=== PATIENT | female | born 1945 | race Caucasian/White ===

== ENCOUNTER 2016-12-16 10:41 | Inpatient (IN) | payer MEDICARE ==
[2016-12-16] MEDS ORDERED: SODIUM CHLORIDE 0.9% 3 ML FLUSH FLUSH PRN (10:56)
[2016-12-16] MEDS ORDERED: HYDROmorphone 1 MG INJECTION IV ONE (10:56)
[2016-12-16] MEDS ORDERED: NS 1,000 ML IV ONE ×2 (10:56)
--- NOTE | 2016-12-16 11:00 | EDPRACDOC ---
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 PT HAS BEEN ON IV ABX SHE UNDERWENT RT AKA 11/07/[address] ALEXIS AND HAD BEEN DOING WELL HAD HUNTER OUT WAS SENT TO [facility] AND AFTER THAT NOTED TO HAVE REDNESS AND SWELLING OF RIGHT AKA STUMP WAS STARTED ON IV VANCOMYCIN AND MEROPENEM. <Cristal Escobar - Last Filed: 12/16/16 13:10> - General Information Chief Complaint: Wound Stated Complaint: WOUND CHECK Time Seen by Provider: 12/16/16 10:41 Home Medications: Home Medications Metoprolol Tartrate 50 mg PO BID #60 tablet 04/03/16 Atorvastatin Calcium [Lipitor] 20 mg PO DAILY #30 tablet 11/10/16 Lisinopril [Prinivil] 2.5 mg PO DAILY #30 tablet 11/10/16 Hydromorphone HCl [Dilaudid] 1 mg PO Q6H PRN 12/16/16 Magnesium Oxide [Mag-Ox] 400 mg PO BID 12/16/16 Oxycodone (OxyCONTIN) Ext Rel [Oxycontin] 10 mg PO Q12H 12/16/16 Pantoprazole Sodium [Protonix] 40 mg PO BID 12/16/16 Potassium Chloride [Klor-Con M20] 40 meq PO BID 12/16/16 Sucralfate [Carafate] 1 gm PO TID 12/16/16 Allergies/Adverse Reactions: Allergies Allergy/AdvReac Type Severity Reaction Status Date / Time morphine AdvReac Nausea/Vomi Verified 12/16/16 10:47 ting ondansetron HCl AdvReac Dizziness Verified 12/16/16 10:47 [From Zofran (as hydrochloride)] - Treatment Prior to ED Arrival Reported Medications/Treatment 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 Denies: Substance Use Disorder Systemic History: Reports: Diabetes Surgical History: Reports: Tonsillectomy/Adnoidectomy, Other () - Family Medical History Reports: Hypertension (MOTHER). Denies: Diabetes, Cancer, Stroke, Cardiac Disorders, Respiratory Disorders, Renal Disease, Blood Disorders - Social Medical History Smoking Status: Former smoker Social History: Denies: Amphetamine Use, Barbiturate Use, Benzodiazipine Use, Cocaine Use, Heroin Use, Marijuana Use, Methadone Use, MDMA (Ecstasy) Use, Substance Use Disorder Lives With: Other Lives In: Longterm Facility <Cristal Escobar - Last Filed: 12/16/16 13:10> EDM Review of Systems - Review of Systems ROS Negative Except as Marked: Yes All systems reviewed and were negative except as marked Constitutional: No Symptoms Reported. negative: Fever, Chills, Weakness, Fatigue, Loss of Appetite Eyes: No Symptoms Reported. negative: Redness, Blurred Vision, Double Vision, Discharge, Pain, Light Sensitive, Photophobia Ears: No Symptoms Reported. negative: Pain, Hearing Loss, Drainage, Ear Pulling Throat: No Symptoms Reported. negative: Pain, Swelling Nose: No Symptoms Reported. negative: Congestion, Bleeding, Discharge, Injection, Swelling, Deformity, Ecchymosis, Tender, Abrasion, Laceration Mouth: No Symptoms Reported. negative: Pain, Drooling Respiratory: No Symptoms Reported. negative: Cough, Brassy Cough, Barky Cough, Shortness of Breath, Wheezing, Hemoptysis Cardiovascular: No Symptoms Reported. negative: Chest Pain, Palpitations, Syncope, Edema, Orthopnea, PND, Skin Mottling, Cyanosis Gastrointestinal: No Symptoms Reported. negative: Pain, Constipation, Nausea, Vomiting, Diarrhea, Melena, Formula Intolerance Genitourinary: No Symptoms Reported. negative: Dysuria, Hematuria, Frequency, Discharge, Bleeding, Testicular Pain, Neurological: No Symptoms Reported. negative: Headache, Dizziness, Seizure, Numbness, Weakness, Speech Difficulty, Gait Difficulty Musculoskeletal: No Symptoms Reported. negative: Neck, Chestwall, Ribs, Back, Shoulder, Arm, Elbow, Forearm, Wrist, Hand, Pelvis, Hip, Femur, Knee, Leg, Ankle , Foot Integumentary: Wound (RIGHT AKA STUMP INFECTION). negative: Bruising, Itching, Rash Allergic/Immunologic: No Symptoms Reported. negative: Hives, Itching Hematologic: No Symptoms Reported. negative: Lymphadenopathy, Easy Bruising, Easy Bleeding Endocrine: No Symptoms Reported. negative: Weight Gain, Weight Loss Psychiatric: No Symptoms Reported. negative: Anxiety, Depression, Hallucinations, Insomnia, Suicidal <Cristal Escobar - Last Filed: 12/16/16 13:10> - Physical Exam Last recorded Vital Signs: Last Vital Signs Temp 97.5 F 12/16/16 10:43 Pulse 78 12/16/16 11:27 Resp 20 12/16/16 11:27 BP 116/56 L 12/16/16 11:27 Pulse Ox 98 12/16/16 11:27 Oxygen Pulse Oxygen Saturation 98 O2 Device Room Air Oxygen Flow Rate Fraction of Inspired Oxygen ( FIO2) <Johnathon Ma - Last Filed: 12/16/16 12:43> - Physical Exam Constitutional: No apparent distress, Alert (Awake), Confused (MILD) Oriented to: Time, Person, Place Last recorded Vital Signs: Last Vital Signs Temp 97.5 F 12/16/16 10:43 Pulse 76 12/16/16 10:43 Resp 18 12/16/16 10:43 BP 118/56 L 12/16/16 10:43 Pulse Ox 99 12/16/16 10:43 Oxygen Pulse Oxygen Saturation 99 O2 Device Room Air Oxygen Flow Rate Fraction of Inspired Oxygen ( FIO2) - HEENT Head: Normal ( normocephalic) Eye Exam: Normal (PERRL, EOMI, Sclera white) Oropharynx: Normal (Pharynx:Moist without exudate,Gums-no swelling) Tympanic Membrane: Normal ENT EAC: Normal TMJ: Normal Nose: No Symptoms Reported (septum midline) Neck: Normal (FROM, trachea at midline) - Respiratory/Cardiovascular Respiratory: Normal - CTA (BBS clear to auscultation without adventitious sounds ) Cardiovascular: Normal (RRR without murmur, gallop or rub) - GI Auscultation: Normal (NABS) Palpation: Normal (Soft,No rebound or guarding, non distended) Tenderness: Non tender Dixon's Sign: Negative - Bladder: Normal - Musculoskeletal Back: Normal (Non-Tender) Extremities: Other (RIGHT AKA STUMP WITH PURULENT DISCHARGE FOUL ODOR AND WOUND DEHISCENCE) - Integumentary Skin: Normal, Warm, Dry Lymphatics: Normal (no adenopathy) - Neurologic Memory Impaired: Normal Motor Function: Normal (Normal tone, Pulses 2+ No cyanosis or edema, FROM) Cranial Nerve: Normal (CN II-X11 intact sensation, strength 5/5) Cerebellar: Normal Mood Description: Normal Perception: Normal <Cristal Escobar - Last Filed: 12/16/16 13:10> ED Wound Check Exam - Wound Detail Wound Location: RIGHT AKA Healing: Other (WOUND DEHISCENCE) Discharge: Purulent Erythema: Localized to Wound Edges <Cristal Escobar - Last Filed: 12/16/16 13:10> - Results 12/16/16 12:13 12/16/16 11:30 WBC 13.3 xk/uL (3.8-10.8) H 12/16/16 12:13 RBC 3.56 xM/uL (4.20-5.40) L 12/16/16 12:13 Hgb 10.6 g/dL (12.0-16.0) L 12/16/16 12:13 Hct 33.4 % (36-47) L 12/16/16 12:13 MCV 94 fL (81-99) 12/16/16 12:13 MCH 29.8 pg (27-32) 12/16/16 12:13 MCHC 31.7 g/dl (33-36) L 12/16/16 12:13 RDW 16.3 % (11.5-14.5) H 12/16/16 12:13 Plt Count 286 xk/uL (130-400) 12/16/16 12:13 MPV 7.6 fL (7.4-10.4) 12/16/16 12:13 Neut % (Auto) 87.3 % (45-76) H 12/16/16 12:13 Lymph % (Auto) 4.0 % (17-44) L 12/16/16 12:13 [place] % (Auto) 7.8 % (3-10) 12/16/16 12:13 Eos % (Auto) 0.1 % (0-5) 12/16/16 12:13 Baso % (Auto) 0.8 % (0-2) 12/16/16 12:13 Absolute Neuts (auto) 11.57 xk/uL (1.7-8.2) H 12/16/16 12:13 Absolute Lymphs (auto) 0.53 xk/uL (0.65-4.75) L 12/16/16 12:13 Sodium 139 mEq/L (137-146) 12/16/16 11:30 Potassium 7.9 mEq/L (3.5-5.1) H* 12/16/16 11:30 Chloride 109 mEq/L (98-107) H 12/16/16 11:30 Carbon Dioxide 22 mMOL/L (22-33) 12/16/16 11:30 Anion Gap 16 mEq/L (8-16) 12/16/16 11:30 BUN 31 MG/DL (7-17) H 12/16/16 11:30 Creatinine 1.90 MG/DL (0.52-1.04) H 12/16/16 11:30 Estimated GFR (MDRD) 26 mL/min (>=60) L 12/16/16 11:30 Glucose 91 mg/dL (70-99) 12/16/16 11:30 Calculated Osmolality 275 MOs/Kg (270-290) 12/16/16 11:30 Calcium 9.6 MG/DL (8.4-10.2) 12/16/16 11:30 Corrected Calcium 10.1 MG/DL (8.4-10.2) 12/16/16 11:30 Total Bilirubin 0.7 MG/DL (0.2-1.3) 12/16/16 11:30 AST 17 IU/L (14-36) 12/16/16 11:30 ALT 29 IU/L (9-52) 12/16/16 11:30 Alkaline Phosphatase 130 IU/L (55-165) 12/16/16 11:30 Total Protein 7.0 G/DL (6.3-8.2) 12/16/16 11:30 Albumin 3.5 G/DL (3.5-5.0) 12/16/16 11:30 Urine Color Yellow 12/16/16 11:25 Urine Clarity Sl cldy 12/16/16 11:25 Urine pH 6.0 (5.0-8.0) 12/16/16 11:25 Ur Specific [place] 1.010 (1.003-1.035) 12/16/16 11:25 Urine Protein 1+ (NEG/TRACE) H 12/16/16 11:25 Urine Glucose (UA) Neg (NEGATIVE) 12/16/16 11:25 Urine Ketones Neg (NEGATIVE) 12/16/16 11:25 Urine Occult Blood Neg (NEG/TRACE) 12/16/16 11:25 Urine Nitrite Neg (NEGATIVE) 12/16/16 11:25 Urine Bilirubin Neg (NEGATIVE) 12/16/16 11:25 Urine Urobilinogen <2.0 MG/DL (0-1) 12/16/16 11:25 Ur Leukocyte Esterase 1+ (NEGATIVE) H 12/16/16 11:25 Urine RBC 0-2 (0-5) 12/16/16 11:25 Urine WBC Tntc (0-5) H 12/16/16 11:25 Urine Bacteria 2+ (NEG/FEW) H 12/16/16 11:25 Urine Mucus Occ (NEG/OCC) 12/16/16 11:25 Lab Results 12/16/16 12/16/16 12/16/16 12:13 11:30 11:25 WBC 13.3 H RBC 3.56 L Hgb 10.6 L Hct 33.4 L MCV 94 MCH 29.8 MCHC 31.7 L RDW 16.3 H Plt Count 286 MPV 7.6 Neut % (Auto) 87.3 H Lymph % (Auto) 4.0 L [place] % (Auto) 7.8 Eos % (Auto) 0.1 Baso % (Auto) 0.8 Absolute Neuts (auto) 11.57 H Absolute Lymphs (auto) 0.53 L Sodium 139 Potassium 7.9 H* Chloride 109 H Carbon Dioxide 22 Anion Gap 16 BUN 31 H Creatinine 1.90 H Estimated GFR (MDRD) 26 L Glucose 91 Calculated Osmolality 275 Calcium 9.6 Corrected Calcium 10.1 Total Bilirubin 0.7 AST 17 ALT 29 Alkaline Phosphatase 130 Total Protein 7.0 Albumin 3.5 Urine Color Yellow Urine Clarity Sl cldy Urine pH 6.0 Ur Specific [place] 1.010 Urine Protein 1+ H Urine Glucose (UA) Neg Urine Ketones Neg Urine Occult Blood Neg Urine Nitrite Neg Urine Bilirubin Neg Urine Urobilinogen <2.0 Ur Leukocyte Esterase 1+ H Urine RBC 0-2 Urine WBC Tntc H Urine Bacteria 2+ H Urine Mucus Occ <Johnathon Ma - Last Filed: 12/16/16 12:43> - Differential Diagnosis Cellulitis, Other (RIGHT AKA STUMP WOUND DEHISCENCE) - Results 12/16/16 12:13 12/16/16 11:30 - EKG EKG #1 EKG Time: 12:41 -: Yes EKG interpreted by me Rate: bpm: 69 Perry: Normal Rhythm: NSR Block: None Hypertrophy: None ST: Normal Comments: PEAKED T-WAVES, MOST LIKELY DUE TO K+ 7.9 <Cristal Escobar - Last Filed: 12/16/16 13:10> - Departure Yes I personally saw and evaluated the patient. 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 Returned Call: 12:43 <Johnathon Ma - Last Filed: 12/16/16 12:43> - Departure Education/Counseling Given To: Patient Education/Counseling Given Regarding: Diagnosis, Treatment, Prognosis, Follow Up - Physician Consulted Surgery Time Called: 11:16 Provider Called: Stanley Espinoza (HAVE HOSPITALIST ADMIT AND HE WILL CONSULT) <Cristal Escobar - Last Filed: 12/16/16 13:10> - Departure Final Diagnosis: Hyperkalemia Wound dehiscence, surgical Qualifiers: Encounter type: initial encounter Qualified Code(s): T81.31XA - Disruption of external operation (surgical) wound, not elsewhere classified, initial encounter Referrals: None,No Provider [Primary Care Provider] - One Week Prescriptions: No Action Metoprolol Tartrate 50 mg PO BID #60 tablet Atorvastatin Calcium [Lipitor] 20 mg PO DAILY #30 tablet Lisinopril [Prinivil] 2.5 mg PO DAILY #30 tablet Potassium Chloride [Klor-Con M20] 40 meq PO BID Pantoprazole Sodium [Protonix] 40 mg PO BID Oxycodone (OxyCONTIN) Ext Rel [Oxycontin] 10 mg PO Q12H Magnesium Oxide [Mag-Ox] 400 mg PO BID Hydromorphone HCl [Dilaudid] 1 mg PO Q6H PRN PRN Reason: Pain Sucralfate [Carafate] 1 gm PO TID
--- NOTE | 2016-12-16 12:16 | DIRPT ---
CLINICAL DATA: Status post above the knee amputation with wound dehiscence and pain. EXAM: RIGHT FEMUR - 2 VIEW COMPARISON: None. FINDINGS: Above knee amputation on the RIGHT. The osteotomy has a cortical defect along the posterior margin measuring 1 cm. There is retraction of the stump tissue from the osteotomy site. Small angular 7 mm radiodense fragment within the soft tissue of the stump lateral to the distal femur likely represents a bone fragment. IMPRESSION: 1. High concern for osteomyelitis of the apparently exposed osteotomy site. Recommend direct visualization / exploration. 2. Retraction of the soft tissue of the stump from the osteotomy site. Electronically Signed By: Yoni Alcala M.D. On: 12/16/2016 12:13
[2016-12-16 12:17] LABS: AUTOMATED BASOPHIL 0.8 % (0-2); AUTOMATED EOSINOPHIL 0.1 % (0-5); AUTOMATED MONOCYTE 7.8 % (3-10); AUTOMATED NEUTROPHIL 87.3 % (45-76); MPV 7.6 fL (7.4-10.4)
[2016-12-16 12:23] LABS: BLOOD UREA NITROGEN 31 MG/DL (7-17); CALC CORRECTED 10.1 MG/DL (8.4-10.2); CALCIUM 9.6 MG/DL (8.4-10.2); CALCULATED OSMOLALITY 275 MOs/Kg (270-290); CHLORIDE 109 mEq/L (98-107); GLUCOSE 91 mg/dL (70-99); SODIUM LEVEL 139 mEq/L (137-146)
[2016-12-16 12:27] LABS: LEUKOCYTES/URINE 1+ (NEGATIVE); NITRITE/URINE NEG (NEGATIVE); RBC/URINE 0-2 (0-5); URINE OCCULT BLOOD NEG (NEG/TRACE); WBC/URINE TNTC (0-5)
[2016-12-16] MEDS ORDERED: DEXTROSE 25 GM/50 ML PFS IV ONE ×2 (13:00→15:31)
[2016-12-16] MEDS ORDERED: FUROSEMIDE 40 MG/4 ML VIAL IV ONE (13:00)
[2016-12-16] MEDS ORDERED: REGULAR INSULIN 100 UNITS/ML - 3 ML VIAL IV ONE (13:30)
[2016-12-16] MEDS: SODIUM POLYSTYRENE SULFONATE 15 GM BOTTLE PO ONE ×2 (13:55→15:53)
--- NOTE | 2016-12-16 13:57 | HISTPHYS ---
- Chief Complaint wound of the right lower extremity - History of Present Illness This is a 71 year old female resident of [facility]. She was brought to the [facility] emergency department as there was drainage from the right lower extremity wound. All history is obtained from the patient's chart as the patient is currently confused and yelling out. 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 The wound had been healing well. I examined the wound one to two weeks ago in the office with no tenderness, erythema or fluctuant masses. At that time, there was a one centimeter superficial opening. The wound is now increasing in size with exposed muscle, tendon and bone. There is no purulent drainage at this time. According to the patient's emergency department nurseMaria Elena, there was dried stool coming up and over the patient's diaper on the patient's arrival to the emergency department. - Medical History Cardiac History: Reports: Atrial Fibrillation, Hypertension, Heart Attack Respiratory History: Reports: COPD, Cough GI/ History: Reports: Gastroesophageal Reflux Musculoskeletal History: Reports: Arthritis Systemic History: Reports: Diabetes Psychological History: Reports: Depression. Denies: Substance Use Disorder - Surgical History Reports: Tonsillectomy/Adnoidectomy, Other (, right above the knee amputation.) - Medictions/Allergies Allergies morphine Adverse Reaction (Verified 12/16/16 10:47) Nausea/Vomiting ondansetron HCl [From Zofran (as hydrochloride)] Adverse Reaction (Verified 02/26 10:47) Dizziness Current Medication List: Reviewed Home Medications Metoprolol Tartrate 50 mg PO BID #60 tablet 04/03/16 Atorvastatin Calcium [Lipitor] 20 mg PO DAILY #30 tablet 11/10/16 Lisinopril [Prinivil] 2.5 mg PO DAILY #30 tablet 11/10/16 Hydromorphone HCl [Dilaudid] 1 mg PO Q6H PRN 12/16/16 Magnesium Oxide [Mag-Ox] 400 mg PO BID 12/16/16 Oxycodone (OxyCONTIN) Ext Rel [Oxycontin] 10 mg PO Q12H 12/16/16 Pantoprazole Sodium [Protonix] 40 mg PO BID 12/16/16 Potassium Chloride [Klor-Con M20] 40 meq PO BID 12/16/16 Sucralfate [Carafate] 1 gm PO TID 12/16/16 - Family History Reports: Hypertension (MOTHER). Denies: Diabetes, Cancer, Stroke, Cardiac Disorders, Respiratory Disorders, Renal Disease, Blood Disorders - Social History Travel Outside of [place] in the Last 3 Months?: No Lives: in Residential/SNF Smoking Status: Former smoker Social History: Denies: Amphetamine Use, Barbiturate Use, Benzodiazipine Use, Cocaine Use, Heroin Use, Marijuana Use, Methadone Use, MDMA (Ecstasy) Use, Substance Use Disorder - Review of Systems Yes Review of systems cannot be obtained due to the patient's medical condition (patient with severe confusion. No family members present.) - Physical Exam Vital Signs: Initial Vitals Temperature 97.5 F 12/16/16 10:43 Pulse Rate 76 12/16/16 10:43 Respiratory Rate 18 12/16/16 10:43 Blood Pressure 118/56 L 12/16/16 10:43 Pulse Oxygen Saturation 99 12/16/16 10:43 Constitutional: Confused, Distress (Patient yelling out but unable to state if she is having pain.). negative: Alert Oriented to: Not Oriented, Unable to Test - HEENT Head: Normal Eye: Normal Oropharynx: Normal ENT EAC: Normal Nose: No Symptoms Reported Respiratory: Diminished (diminished bilateral bases.), Wheezes (expiratory wheezes bilaterally.) Cardiovascular: Normal - GI Auscultation: Normal Palpation: Normal Tenderness: Non tender (No apparent tenderness.) Rectal Exam: Deferred - Musculoskeletal Extremities: Other (At right lower extremity surgical site there is an open wound with exposed tendon, muscle and bone. There is scant drainage. No abscess identified. No surrounding erythema. No purulent drainage at this time. ) - Integumentary Skin: Diaphoretic Lymphatics: Normal - Neurologic Memory Impaired: Unable to Test Motor Function: Unable to Test Cranial Nerve: Unable to Test Cerebellar: Unable to Test Mood Description: Agitated. negative: Appropriate, Calm Thought: negative: Coherent - Lab Results 12/16/16 12:13 12/16/16 11:30 - Assessment/Plan (1) Pain of right lower extremity M79.604 - PAIN IN RIGHT LEG Acute Present on Admission: Yes Comment: We will plan for placement of a wound VAC at the open wound of the right lower extremity, if the patient is able to tolerate it. The patient may require revision of amputation when medically stable. Case Care Discussed with: Patient, Consultants (Dr. Mcmahon.), Nursing Staff ( Maria Elena, in the emergency department. )
[2016-12-16] MEDS ORDERED: NS IV ONE (14:00)
[2016-12-16] MEDS ORDERED: DILTIAZEM 25 MG/5 ML VIAL IV ONE ×2 (14:00→14:10)
[2016-12-16] MEDS ORDERED: CALCIUM GLUCONATE IV ONE (14:00)
[2016-12-16] MEDS ORDERED: Diltiazem HCl 100 MG in D5W 100 ML IV SCH (14:01)
[2016-12-16] MEDS ORDERED: GLUCOSE (ORAL GEL) 15 GM TUBE PO PRN (14:05)
[2016-12-16] MEDS ORDERED: DEXTROSE 25 GM/50 ML PFS IV PRN (14:05)
[2016-12-16] MEDS ORDERED: GLUCAGON 1 MG VIAL SQ PRN (14:05)
[2016-12-16] MEDS ORDERED: ACETAMINOPHEN 650 MG SUPP PR PRN (14:05)
[2016-12-16] MEDS ORDERED: Albuterol/Ipratropium Neb 3 ML NEB NEB PRN (14:05)
[2016-12-16] MEDS ORDERED: IBUPROFEN 600 MG TAB PO PRN (14:05)
[2016-12-16] MEDS ORDERED: LORAZEPAM 2 MG/ML VIAL IV ONE (14:09)
[2016-12-16] MEDS ORDERED: SODIUM BICARBONATE 50 ML IV ONE (14:15)
[2016-12-16] MEDS ORDERED: LR 1,000 ML IV SCH (15:00)
[2016-12-16] MEDS ORDERED: SODIUM BICARBONATE 50 MEQ/50 ML (8.4%) PFS IV ONE (15:00)
[2016-12-16 15:26] LABS: BLOOD UREA NITROGEN 27 MG/DL (7-17); CALCIUM 9.4 MG/DL (8.4-10.2); CALCULATED OSMOLALITY 280 MOs/Kg (270-290); CHLORIDE 113 mEq/L (98-107); SODIUM LEVEL 145 mEq/L (137-146)
[2016-12-16 15:31] LABS: GLUCOSE 25 mg/dL (70-99)
--- NOTE | 2016-12-16 15:38 | HIMCONSMED ---
Consultation Date: 12/16/16 Requesting Physician: Stanley Espinoza Consulting Doctor: Fran Bernal Consult Reason: Medical Management This is a chronically ill 71-year-old female with a history of severe peripheral arterial disease who underwent right [id number] amputation at this facility on November [address] and D Espinoza. She had a complicated hospital course, during which her amputation surgery was delayed due to development of non ST elevation myocardial infarction in the hospital, and was followed by development of a postsurgical pneumonia requiring transfer to the intensive care unit and noninvasive ventilatory support. Eventually, the patient was transferred to a long-term acute care hospital for further treatment. It seems that she was there for several days, and transferred to a local [place] [facility] facility several days later. History is taken from conversation with the emergency department provider, as well as Dr. Espinoza, and notes provided from the patient's [place] [facility]. Patient was reportedly very agitated and excitable earlier in the emergency department, and nursing staff notes that this is consistent with her prior behavior. Due to her agitation, she was given a dose of IV Ativan in the emergency department, as well as 20 mg IV dose of diltiazem due to AFib with RVR. She now is hypotensive , and unresponsive likely due to her IV Ativan. Case was discussed at length with Dr. Espinoza and the emergency provider at the bedside. Patient was admitted to the hospital by Dr. Espinoza, who requested internal medicine consultation due to her multiple medical comorbidities and abnormalities listed below. Chief Complaint: wound of the right lower extremity - Past Medical and Surgical History Cardiac History: Reports: Atrial Fibrillation, Hypertension, Heart Attack Respiratory History: Reports: COPD, Cough GI/ History: Reports: Gastroesophageal Reflux Systemic History: Reports: Diabetes Musculoskeletal History: Reports: Arthritis Psychological History: Reports: Depression. Denies: Substance Use Disorder Past Surgical History: Reports: Tonsillectomy/Adnoidectomy, Other (, right above the knee amputation.) Allergies morphine Adverse Reaction (Verified 12/16/16 10:47) Nausea/Vomiting ondansetron HCl [From Zofran (as hydrochloride)] Adverse Reaction (Verified 02/26 10:47) Dizziness Home Medications Metoprolol Tartrate 50 mg PO BID #60 tablet 04/03/16 Atorvastatin Calcium [Lipitor] 20 mg PO DAILY #30 tablet 11/10/16 Lisinopril [Prinivil] 2.5 mg PO DAILY #30 tablet 11/10/16 Hydromorphone HCl [Dilaudid] 1 mg PO Q6H PRN 12/16/16 Magnesium Oxide [Mag-Ox] 400 mg PO BID 12/16/16 Oxycodone (OxyCONTIN) Ext Rel [Oxycontin] 10 mg PO Q12H 12/16/16 Pantoprazole Sodium [Protonix] 40 mg PO BID 12/16/16 Potassium Chloride [Klor-Con M20] 40 meq PO BID 12/16/16 Sucralfate [Carafate] 1 gm PO TID 12/16/16 - Social History Travel Outside of [place] in the Last 3 Months?: No Lives: in [facility] Smoking Status: Former smoker Social History: Denies: Amphetamine Use, Barbiturate Use, Benzodiazipine Use, Cocaine Use, Heroin Use, Marijuana Use, Methadone Use, MDMA (Ecstasy) Use, Substance Use Disorder - Family History Reports: Hypertension (MOTHER). Denies: Diabetes, Cancer, Stroke, Cardiac Disorders, Respiratory Disorders, Renal Disease, Blood Disorders - Review of Systems Yes Review of systems cannot be obtained due to the patient's medical condition - Physical Exam Vital Signs: Initial Vitals Temperature 97.5 F 12/16/16 10:43 Pulse Rate 76 12/16/16 10:43 Respiratory Rate 18 12/16/16 10:43 Blood Pressure 118/56 L 12/16/16 10:43 Pulse Oxygen Saturation 99 12/16/16 10:43 Oriented to: Not Oriented, Unable to Test Exam: Elderly woman appearing older than her stated age, somnolent on a stretcher in the emergency department. - HEENT Head: Normal (normocephalic,atraumatic, trachea midline) Eye: Normal (EOMI, Sclera white) Oropharynx: Normal (moist) Nose: No Symptoms Reported (without discharge or bleeding) Respiratory: Diminished. negative: Accessory Muscle Use, Rhonchi, Stridor, Tachypnea Cardiovascular: Tachycardia, Irregular - GI Palpation: Normal (soft, non distended and nontender) - Musculoskeletal She has no appreciable peripheral edema. She is status post right BKA, wound is examined. There is no clear evidence of infection, as she has no areas of fluctuance, no significant erythema or induration around her surgical wound. However, the surgical wound is clearly dehisced, with visible bone underneath. There is some thick yellowish discharge from the region, and there is some malodor. - Lab Results Laboratory Tests 12/16/16 12/16/16 11:30 12:13 WBC 13.3 H Hgb 10.6 L Hct 33.4 L Plt Count 286 Potassium 7.9 H* Chloride 109 H BUN 31 H Creatinine 1.90 H Total Bilirubin 0.7 AST 17 ALT 29 Alkaline Phosphatase 130 - Diagnostic Findings X-ray of the femur: Above knee amputation on the RIGHT. The osteotomy has a cortical defect along the posterior margin measuring 1 cm. There is retraction of the stump tissue from the osteotomy site. Small angular 7 mm radiodense fragment within the soft tissue of the stump lateral to the distal femur likely represents a bone fragment. - Assessment (1) Sepsis A41.9 - SEPSIS, UNSPECIFIED ORGANISM Acute Patient meeting criteria with leukocytosis, tachycardia. Source is her wound dehiscence and related infection. Lactate is pending, copious IV fluids be used, but with caution as the patient does have a history of heart failure. Patient will be admitted to the ICU, due to her multiple medical issues and increase risk of dying. (2) Acute on chronic renal failure N17.9 - ACUTE KIDNEY FAILURE, UNSPECIFIED; N18.9 - CHRONIC KIDNEY DISEASE, UNSPECIFIED Acute Likely due to dehydration related to her sepsis. Hydrating aggressively as above, will follow renal function closely. Avoid nephro toxic agents, and watch urine output. If creatinine not improving, or with low urine output, will need to get renal ultrasound to rule out obstruction or other medical renal disease. (3) Osteomyelitis M86.9 - OSTEOMYELITIS, UNSPECIFIED Acute Suspected osteomyelitis based on imaging study, however the wound does not look grossly infected. Discussed with surgical staff, will treat empirically with IV antibiotics, and watch for signs of further infection. Could consider MRI to further elucidate possibility of infection in the bone. (4) Leukocytosis D72.829 - ELEVATED WHITE BLOOD CELL COUNT, UNSPECIFIED Acute Due to wound dehiscence and sepsis. (5) Hyperkalemia E87.5 - HYPERKALEMIA Acute Patient admitted to the hospital with severe hyperkalemia, likely due to continued potassium supplementation in the face of developing renal failure. This is a presumption, as admitting notes from the [place] [facility] note hypokalemia, and intention to continue potassium supplementation. Apparently supplemental oral potassium was also on the patient 's latest medication list at the [place] [facility]. EKG could not be found in the emergency department by emergency department staff , but they tell me that peaked T-waves were present initially. The patient has received fluids, calcium gluconate, sodium bicarbonate, insulin and glucose, as well as oral Kayexalate. Will follow potassium levels q.4 hours. I did examine a repeat EKG, which does not exhibit any signs of hyperkalemia such as peaked T-waves. (6) Wound dehiscence, surgical T81.31XA - DISRUPTION OF EXTERNAL OPERATION (SURGICAL) WOUND, NEC, INIT Acute Qualifiers: Encounter type: initial encounter Qualified Code(s): T81.31XA - Disruption of external operation (surgical) wound, not elsewhere classified, initial encounter Discussed with Dr. Espinoza at the bedside, plan on wound VAC placement. (7) Acute hypoactive delirium due to multiple etiologies F05 - DELIRIUM DUE TO KNOWN PHYSIOLOGICAL CONDITION Acute Continue supportive care. Minimize sedation (8) CHF (congestive heart failure) I50.9 - HEART FAILURE, UNSPECIFIED Acute Qualifiers: Congestive heart failure type: systolic Congestive heart failure chronicity : acute Qualified Code(s): I50.21 - Acute systolic (congestive) heart failure Reportedly EF 40-45%. Compensated at this time, monitor weight and fluid balance continue salt restriction when eating. (9) Atrial fibrillation I48.91 - UNSPECIFIED ATRIAL FIBRILLATION Chronic Qualifiers: Atrial fibrillation type: paroxysmal Qualified Code(s): I48.0 - Paroxysmal atrial fibrillation Patient has a history of atrial fibrillation, was on Cardizem drip during her last hospital stay. In the emergency department, she received a dose of IV Cardizem, resulting in good control of her heart rate, but also hypotension. Patient we placed on Cardizem dipped if she continues to have rapid ventricular response, and if blood pressure tolerates. (10) Hypertension I10 - ESSENTIAL (PRIMARY) HYPERTENSION Chronic Qualifiers: Hypertension type: essential hypertension Qualified Code(s): I10 - Essential (primary) hypertension Patient with hypotension, so beta-stacia has been reduced in half, she was given a dose of Cardizem. Will give p.r.n. antihypertensive if she her blood pressure eventually rises. - Plan In summary this patient is acutely and critically ill. The patient requires treatment of vital organ failure and measures to prevent further life- threatening deterioration of the above conditions. I personally reviewed and ordered lab testing, as well as imaging. I reviewed old medical records from previous hospitalizations as available, and spent the time mentioned below in critical care of this patient including counseling and coordination of care. Due to her multiple severe medical issues, patient will be transferred to hospitalist service. Surgical service will continue to follow for her wound complication. Case Care Discussed with: Consultants, Nursing Staff Total Time: 120 Critical Care: Yes Couseling Time (>50% in counseling/coordination): Yes
[2016-12-16] MEDS: NS 1,000 ML IV SCH ×3 (16:09→18:37)
[2016-12-16] MEDS: REGULAR INSULIN 100 UNITS/ML - 3 ML VIAL SQ SCH ×2 (16:41→22:38)
[2016-12-16] MEDS ORDERED: Vaccine Screening Complete SCH (17:00)
[2016-12-16] MEDS ORDERED: NS/KCl 20 mEq 1,000 ML IV SCH (18:00)
[2016-12-16] MEDS ORDERED: ENOXAPARIN 30 MG/0.3 ML PFS SQ SCH (18:00)
[2016-12-16] MEDS: PIPERACILLIN AND TAZOBACTAM 4.5 GM in D5W 100 ML IV SCH (18:29)
[2016-12-16] MEDS: SODIUM CHLORIDE 0.9% 3 ML FLUSH FLUSH SCH (18:30)
[2016-12-16] MEDS: PANTOPRAZOLE 40 MG VIAL IV SCH (18:34)
[2016-12-16 22:27] LABS: BLOOD UREA NITROGEN 23 MG/DL (7-17); CALCIUM 8.6 MG/DL (8.4-10.2); CALCULATED OSMOLALITY 276 MOs/Kg (270-290); CHLORIDE 108 mEq/L (98-107); GLUCOSE 114 mg/dL (70-99); SODIUM LEVEL 141 mEq/L (137-146)
[2016-12-16] MEDS: [UNRECOGNIZED DRUG - OTHER] PO SCH (22:38)
[2016-12-17] MEDS: OXYCODONE (OxyCONTIN) 10 MG TAB PO SCH ×3 (00:32→20:20)
[2016-12-17] MEDS: METOPROLOL TARTRATE 25 MG TAB PO SCH ×3 (00:33→20:20)
[2016-12-17] MEDS: NS 1,000 ML IV SCH ×4 (01:19→20:23)
[2016-12-17] MEDS: PIPERACILLIN AND TAZOBACTAM 4.5 GM in D5W 100 ML IV SCH ×3 (01:30→16:29)
[2016-12-17] MEDS: [UNRECOGNIZED DRUG - OTHER] PO SCH ×3 (05:04→20:20)
[2016-12-17] MEDS: SODIUM CHLORIDE 0.9% 3 ML FLUSH FLUSH SCH ×2 (05:05→16:28)
[2016-12-17 06:02] LABS: BLOOD UREA NITROGEN 21 MG/DL (7-17); CALCIUM 8.1 MG/DL (8.4-10.2); CALCULATED OSMOLALITY 274 MOs/Kg (270-290); CHLORIDE 108 mEq/L (98-107); GLUCOSE 92 mg/dL (70-99); SODIUM LEVEL 141 mEq/L (137-146)
[2016-12-17] MEDS: REGULAR INSULIN 100 UNITS/ML - 3 ML VIAL SQ SCH ×4 (07:38→20:21)
[2016-12-17] MEDS: ATORVASTATIN 20 MG TAB PO SCH (07:39)
[2016-12-17] MEDS: ACETAMINOPHEN 325 MG/TAB TABLET PO PRN (07:39)
--- NOTE | 2016-12-17 09:10 | GENMEDPROG ---
Chief Complaint: Hyperkalemia and renal failure, wound dehiscence Subjective Note: Stable overnight, seen in the ICU this morning. She is still somnolent, unresponsive. She is in restraints, per nursing staff she is very agitated and excitable when awake. She has a history of pulling out lines. Notes Reviewed: Yes: Events from last night noted and discussed with Clinical Staff Current Medication List: Reviewed DVT Prophylaxis: Yes - Physical Examination Vital Signs and I&O: Last Vital Signs Temp 98.3 F 12/17/16 08:50 Pulse 102 12/17/16 08:00 Resp 16 12/17/16 08:00 BP 117/56 L 12/17/16 08:00 Pulse Ox 99 12/17/16 08:00 Oxygen Pulse Oxygen Saturation 99 O2 Device Nasal Cannula Oxygen Flow Rate 2 Fraction of Inspired Oxygen ( FIO2) Intake & Output 12/15/16 12/16/16 12/17/16 12/18/16 06:59 06:59 06:59 06:59 Intake Total 5319 Output Total 2550 Balance 2769 Patient's weight 56.245 kg General: No acute distress HEENT: EOMI (Sclera white) Neck: Normal Trachea alignment, Normal inspection Respiratory: Diminished. negative: Accessory Muscle Use, Rhonchi, Stridor, Tachypnea Cardiovascular: Regular rate, No Gallops,Rubs/Murmurs GI: Normal bowel sounds, Soft, Non tender (non distended) Today her right AKA stump is wrapped in a dressing, dressing not removed or examined today. Lab/DI/Studies Reviewed: Laboratory Tests 12/16/16 12/16/16 12/16/16 11:30 12:13 15:10 WBC 13.3 H Hgb 10.6 L Potassium 7.9 H* BUN Creatinine 1.50 H 12/16/16 12/17/16 22:01 05:03 WBC Hgb Potassium 4.4 BUN 21 H Creatinine 1.40 H 1.30 H - Assessment (1) Sepsis Acute A41.9 - SEPSIS, UNSPECIFIED ORGANISM Comment/Plan: Patient meeting criteria at the time of admission with leukocytosis, tachycardia. Source is her wound dehiscence and suspected related infection. Lactate was elevated, copious IV fluids be used, but with caution as the patient does have a history of heart failure. Patient was admitted to the ICU, due to her multiple medical issues and increase risk of dying. (2) Acute on chronic renal failure Acute N17.9 - ACUTE KIDNEY FAILURE, UNSPECIFIED; N18.9 - CHRONIC KIDNEY DISEASE, UNSPECIFIED Comment/Plan: Acute kidney injury related to dehydration from her sepsis. She was hydrated aggressively as above, renal function is being followed closely. We are avoiding nephrotoxins agents, urine output is being followed closely. Creatinine improving dramatically today. Continue present medical care and avoid nephro toxic agents. (3) Osteomyelitis Acute M86.9 - OSTEOMYELITIS, UNSPECIFIED Comment/Plan: Suspected osteomyelitis based on imaging study, however the wound does not look grossly infected. Discussed with surgical staff, will treat empirically with IV antibiotics, and watch for signs of further infection. Could consider MRI to further elucidate possibility of infection in the bone. (4) Leukocytosis Acute D72.829 - ELEVATED WHITE BLOOD CELL COUNT, UNSPECIFIED Comment/Plan: Due to wound dehiscence and sepsis. (5) Hyperkalemia Acute E87.5 - HYPERKALEMIA Comment/Plan: Patient admitted to the hospital with severe hyperkalemia, likely due to continued potassium supplementation in the face of developing renal failure. This is a presumption, as [facility] notes [facility] the [facility] note hypokalemia, and intention to continue potassium supplementation. Apparently supplemental oral potassium was also on the patient's latest medication list at the [facility]. EKG could not be found in the emergency department by emergency department staff , but they tell me that peaked T-waves were present initially. The patient has received fluids, calcium gluconate, sodium bicarbonate, insulin and glucose, as well as oral Kayexalate. Will follow potassium levels q.4 hours. I did examine a repeat EKG, which does not exhibit any signs of hyperkalemia such as peaked T-waves. (6) Wound dehiscence, surgical Acute T81.31XA - DISRUPTION OF EXTERNAL OPERATION (SURGICAL) WOUND, NEC, INIT Qualifiers: Encounter type: initial encounter Qualified Code(s): T81.31XA - Disruption of external operation (surgical) wound, not elsewhere classified, initial encounter Comment/Plan: Discussed with Dr. Espinoza at the bedside, plan on wound VAC placement. (7) Acute hypoactive delirium due to multiple etiologies Acute F05 - DELIRIUM DUE TO KNOWN PHYSIOLOGICAL CONDITION Comment/Plan: Continue supportive care. Minimize sedation (8) CHF (congestive heart failure) Acute I50.9 - HEART FAILURE, UNSPECIFIED Qualifiers: Congestive heart failure type: systolic Congestive heart failure chronicity : acute Qualified Code(s): I50.21 - Acute systolic (congestive) heart failure Comment/Plan: Reportedly EF 40-45%. Compensated at this time, monitor weight and fluid balance continue salt restriction when eating. (9) Atrial fibrillation Chronic I48.91 - UNSPECIFIED ATRIAL FIBRILLATION Qualifiers: Atrial fibrillation type: paroxysmal Qualified Code(s): I48.0 - Paroxysmal atrial fibrillation Comment/Plan: Patient has a history of atrial fibrillation, was on Cardizem drip during her last hospital stay. In the emergency department, she received a dose of IV Cardizem, resulting in good control of her heart rate, but also hypotension. Continue home beta-stacia, though it is at half her usual dose due to her hypotension. Once her blood pressure is more stabilized, would consider resumption of her home dose metoprolol. (10) Hypertension Chronic I10 - ESSENTIAL (PRIMARY) HYPERTENSION Qualifiers: Hypertension type: essential hypertension Qualified Code(s): I10 - Essential (primary) hypertension Comment/Plan: Patient with hypotension, so beta-stacia has been reduced in half , she was given a dose of Cardizem. Will give p.r.n. antihypertensive if she her blood pressure eventually rises. - Plan In summary this patient is acutely and critically ill. The patient requires treatment of vital organ failure and measures to prevent further life- threatening deterioration of the above conditions. I personally reviewed and ordered lab testing, as well as imaging. I reviewed old medical records from previous hospitalizations as available, and spent the time mentioned below in critical care of this patient including counseling and coordination of care.
--- NOTE | 2016-12-17 13:23 | PCM.SURGRO ---
12/17/16 at 1320. I discussed the wound VAC with Niranjan from physical therapy. He reports that the patient tolerated it well. No purulent drainage note. Wound VAC in place. No leak noted. No drainage noted. No erythema surrounding the wound. No fluctuant masses palpated. We will plan for continued wound VAC and intravenous antibiotics, possibly for six weeks as there is concern for osteomyelitis per the radiologist. I discussed the treatment plan with the patient's granddaughter. All questions were answered. She voiced understanding and agreement with the above plan.
[2016-12-17 14:38] LABS: BLOOD UREA NITROGEN 19 MG/DL (7-17); CALCIUM 7.9 MG/DL (8.4-10.2); CALCULATED OSMOLALITY 276 MOs/Kg (270-290); CHLORIDE 110 mEq/L (98-107); GLUCOSE 86 mg/dL (70-99); SODIUM LEVEL 143 mEq/L (137-146)
[2016-12-17] MEDS: PANTOPRAZOLE 40 MG VIAL IV SCH (16:27)
[2016-12-17] MEDS: ENOXAPARIN 40 MG/0.4 ML PFS SQ SCH (16:27)
[2016-12-18] MEDS: PIPERACILLIN AND TAZOBACTAM 4.5 GM in D5W 100 ML IV SCH ×3 (02:50→18:44)
[2016-12-18] MEDS: NS 1,000 ML IV SCH ×3 (05:17→17:38)
[2016-12-18] MEDS: ACETAMINOPHEN 325 MG/TAB TABLET PO PRN ×2 (05:17→12:13)
[2016-12-18] MEDS: [UNRECOGNIZED DRUG - OTHER] PO SCH ×4 (05:17→20:59)
[2016-12-18 05:21] LABS: MPV 8.3 fL (7.4-10.4)
[2016-12-18 05:37] LABS: BLOOD UREA NITROGEN 15 MG/DL (7-17); CALCIUM 7.4 MG/DL (8.4-10.2); CALCULATED OSMOLALITY 269 MOs/Kg (270-290); CHLORIDE 108 mEq/L (98-107); GLUCOSE 74 mg/dL (70-99); SODIUM LEVEL 140 mEq/L (137-146)
[2016-12-18] MEDS: REGULAR INSULIN 100 UNITS/ML - 3 ML VIAL SQ SCH ×4 (06:08→21:12)
[2016-12-18] MEDS: SODIUM CHLORIDE 0.9% 3 ML FLUSH FLUSH SCH ×2 (06:08→16:29)
[2016-12-18] MEDS: OXYCODONE (OxyCONTIN) 10 MG TAB PO SCH ×2 (07:40→20:59)
[2016-12-18] MEDS: METOPROLOL TARTRATE 25 MG TAB PO SCH ×2 (07:44→20:59)
[2016-12-18] MEDS: ATORVASTATIN 20 MG TAB PO SCH (07:44)
--- NOTE | 2016-12-18 11:35 | PCM.SURGRO ---
12/18/16 at 1132 am. Vital signs noted. On examination of right lower extremity, wound VAC in place. Minimal drainage. No erythema. No fluctuant masses. Not tender to palpation. We will plan for continued wound VAC and six weeks of antibiotics as there is concern for osteomyelitis on imaging.
--- NOTE | 2016-12-18 13:36 | GENMEDPROG ---
Subjective Note: Patient in bed responsive follows commands. Still reports severe pain involving right stump. Denies and difficulties breathing cough phlegm production. P.o. intake poor. Notes Reviewed: Yes: Events from last night noted and discussed with Clinical Staff Current Medication List: Reviewed Currently: Reports: Cough, HOANG, SOB, Sputum, Reflux Sx DVT Prophylaxis: Yes - Physical Examination Vital Signs and I&O: Last Vital Signs Temp 97.6 F 12/18/16 12:07 Pulse 94 12/18/16 12:15 Resp 20 12/18/16 12:07 BP 117/58 L 12/18/16 12:07 Pulse Ox 95 12/18/16 12:07 Oxygen Pulse Oxygen Saturation 95 O2 Device Nasal Cannula Oxygen Flow Rate 1 Fraction of Inspired Oxygen ( FIO2) Intake & Output 12/15/16 12/16/16 12/17/16 12/18/16 23:59 23:59 23:59 23:59 Intake Total 3429 3231 2163 Output Total 1250 1750 850 Balance 2179 1481 1313 Patient's weight 51.755 kg 56.245 kg 52.889 kg General: Alert, Oriented x3, Cooperative, Mild distress HEENT: Normal, PERRLA, EOMI (Sclera white), Anicteric Sclera Neck: Non-tender, Normal Trachea alignment, Normal inspection, Limited range of motion Lymphatics: Normal Respiratory: Diminished, Rhonchi. negative: Accessory Muscle Use, Stridor, Tachypnea, Wheezes Cardiovascular: Regular rate, Normal S1, No Gallops,Rubs/Murmurs, Normal S2, Murmurs GI: Normal bowel sounds, Soft, Non tender (non distended), No hepatospenomegaly , No masses Extremities/Musculoskeletal: Edema, Clubbing, Cyanosis, DJD, Other (Right stump with VAC device in place,) Skin: Warm,Dry and Intact, No rashes, No breakdown, No significant lesion Neurological: Normal speech, Normal tone, Cranial nerves 3-12 NL Psych/Mental Status: Agitated, Anxious Lab/DI/Studies Reviewed: Allergies morphine Adverse Reaction (Verified 12/16/16 10:47) Nausea/Vomiting ondansetron HCl [From Zofran (as hydrochloride)] Adverse Reaction (Verified 02/26 10:47) Dizziness Last Vital Signs Temp 97.6 F 12/18/16 12:07 Pulse 94 12/18/16 12:15 Resp 20 12/18/16 12:07 BP 117/58 L 12/18/16 12:07 Pulse Ox 95 12/18/16 12:07 12/18/16 04:35 12/18/16 04:35 Abnormal Lab Results 12/17/16 12/18/16 12/18/16 14:03 04:35 04:35 RBC 2.88 L Hgb 8.7 L D Hct 26.8 L MCHC 32.5 L RDW 15.8 H Potassium 2.8 L Chloride 110 H 108 H BUN 19 H Creatinine 1.30 H 1.10 H Estimated GFR (MDRD) 40 L 49 L POC Capillary Glucose Calculated Osmolality 269 L Calcium 7.9 L 7.4 L 12/18/16 12:09 RBC Hgb Hct MCHC RDW Potassium Chloride BUN Creatinine Estimated GFR (MDRD) POC Capillary Glucose 141 H Calculated Osmolality Calcium - Assessment (1) Sepsis Resolved A41.9 - SEPSIS, UNSPECIFIED ORGANISM Qualifiers: Sepsis type: sepsis due to unspecified organism Qualified Code(s): A41.9 - Sepsis, unspecified organism Comment/Plan: Continue IV antibiotics and IV fluids.. Clinically improved (2) Urinary tract infection Acute N39.0 - URINARY TRACT INFECTION, SITE NOT SPECIFIED Qualifiers: Urinary tract infection type: acute cystitis Hematuria presence: without hematuria Qualified Code(s): N30.00 - Acute cystitis without hematuria Comment/Plan: Preliminary report shows gram-negative rods. Continue antibiotics (3) Wound dehiscence, surgical Acute T81.31XA - DISRUPTION OF EXTERNAL OPERATION (SURGICAL) WOUND, NEC, INIT Qualifiers: Encounter type: initial encounter Qualified Code(s): T81.31XA - Disruption of external operation (surgical) wound, not elsewhere classified, initial encounter Comment/Plan: As per surgery, VAC device in place (4) Acute hypoactive delirium due to multiple etiologies Acute F05 - DELIRIUM DUE TO KNOWN PHYSIOLOGICAL CONDITION Comment/Plan: Mentation improved. Patient alert and interactive follows commands. Continue supportive care ,minimize sedation (5) Anemia Acute D64.9 - ANEMIA, UNSPECIFIED Qualifiers: Anemia type: unspecified type Qualified Code(s): D64.9 - Anemia, unspecified Comment/Plan: Monitor counts transfuse as needed indicated (6) Acute on chronic renal failure Acute N17.9 - ACUTE KIDNEY FAILURE, UNSPECIFIED; N18.9 - CHRONIC KIDNEY DISEASE, UNSPECIFIED Comment/Plan: Renal function improved. Continue IV fluids avoid any nephrotoxins. (7) Hyperkalemia Resolved E87.5 - HYPERKALEMIA Comment/Plan: Resolved. Given hypokalemia patient were required potassium replacement (8) CHF (congestive heart failure) Acute I50.9 - HEART FAILURE, UNSPECIFIED Qualifiers: Congestive heart failure type: systolic Congestive heart failure chronicity : acute Qualified Code(s): I50.21 - Acute systolic (congestive) heart failure Comment/Plan: Reportedly EF 40-45%. Compensated at this time, monitor weight and fluid balance continue salt restriction when eating. (9) Phantom pain Acute R52 - PAIN, UNSPECIFIED Comment/Plan: Continue OxyContin and p.r.n. Oxy-IR (10) Hypertension Chronic I10 - ESSENTIAL (PRIMARY) HYPERTENSION Qualifiers: Hypertension type: essential hypertension Qualified Code(s): I10 - Essential (primary) hypertension Comment/Plan: Continue meds keep SBP less than 140 (11) GERD (gastroesophageal reflux disease) Acute K21.9 - GASTRO-ESOPHAGEAL REFLUX DISEASE WITHOUT ESOPHAGITIS Qualifiers: Esophagitis presence: without esophagitis Qualified Code(s): K21.9 - Gastro -esophageal reflux disease without esophagitis Comment/Plan: Continue PPI Case Care Discussed with: Patient, Nursing Staff, Speech Therapy Education/Counseling Given To: Patient Education/Counseling Given Regarding: Diagnosis, Treatment, Prognosis, Follow Up Total Time: 45 min . Critical Care: No Code: [id number] (12+)
[2016-12-18] MEDS ORDERED: ACETAMINOPHEN 650 MG SUPP PR SCH (14:00)
[2016-12-18] MEDS ORDERED: ACETAMINOPHEN 325 MG/TAB TABLET PO SCH (14:00)
[2016-12-18] MEDS: KCL 20 mEq/100 ml Premix Run 20 MEQ/100 ML RTU IV SCH ×2 (14:30→16:28)
[2016-12-18] MEDS: ACETAMINOPHEN 325 MG/TAB TABLET PO SCH ×2 (15:14→20:59)
[2016-12-18] MEDS: POTASSIUM CHLORIDE 20 MEQ TAB PO SCH (16:28)
[2016-12-18] MEDS: PANTOPRAZOLE 40 MG TAB PO SCH (16:28)
[2016-12-18] MEDS: ENOXAPARIN 40 MG/0.4 ML PFS SQ SCH (16:29)
[2016-12-19] MEDS: ACETAMINOPHEN 325 MG/TAB TABLET PO SCH ×4 (02:32→21:18)
[2016-12-19] MEDS: PIPERACILLIN AND TAZOBACTAM 4.5 GM in D5W 100 ML IV SCH ×3 (02:32→17:49)
[2016-12-19 05:42] LABS: AUTOMATED BASOPHIL 1.1 % (0-2); AUTOMATED EOSINOPHIL 1.3 % (0-5); AUTOMATED LYMPH 10.5 % (17-44); AUTOMATED MONOCYTE 8.1 % (3-10); MPV 8.2 fL (7.4-10.4)
[2016-12-19 05:47] LABS: BLOOD UREA NITROGEN 12 MG/DL (7-17); CALCIUM 7.3 MG/DL (8.4-10.2); CALCULATED OSMOLALITY 255 MOs/Kg (270-290); CHLORIDE 105 mEq/L (98-107); GLUCOSE 78 mg/dL (70-99); SODIUM LEVEL 133 mEq/L (137-146)
[2016-12-19] MEDS: PANTOPRAZOLE 40 MG TAB PO SCH ×2 (06:16→16:24)
[2016-12-19] MEDS: REGULAR INSULIN 100 UNITS/ML - 3 ML VIAL SQ SCH ×4 (06:16→21:15)
[2016-12-19] MEDS: SODIUM CHLORIDE 0.9% 3 ML FLUSH FLUSH SCH ×2 (06:16→16:22)
[2016-12-19] MEDS: [UNRECOGNIZED DRUG - OTHER] PO SCH ×3 (08:03→21:18)
[2016-12-19] MEDS: OXYCODONE (OxyCONTIN) 10 MG TAB PO SCH ×2 (08:03→21:18)
[2016-12-19] MEDS: METOPROLOL TARTRATE 25 MG TAB PO SCH ×2 (08:03→21:18)
[2016-12-19] MEDS: POTASSIUM CHLORIDE 20 MEQ TAB PO SCH ×2 (08:03→16:24)
[2016-12-19] MEDS: Magnesium Sulfate 2 gm/D5W 2 GM/50 ML RTU IV SCH ×2 (08:38→12:33)
[2016-12-19] MEDS: ATORVASTATIN 20 MG TAB PO SCH (08:38)
[2016-12-19] MEDS: KCL 20 mEq/100 ml Premix Run 20 MEQ/100 ML RTU IV SCH ×2 (08:38→12:34)
[2016-12-19] MEDS: OXYCODONE HCL 5 MG TABLET PO PRN ×2 (09:21→16:26)
[2016-12-19] MEDS ORDERED: PROMETHAZINE 25 MG/ML VIAL IV PRN (09:32)
--- NOTE | 2016-12-19 09:45 | GENMEDPROG ---
Subjective Note: Patient in bed responsive follows commands, episodes of nausea and vomiting since this morning. Still significant amount of stump pain. Denies and difficulties breathing cough phlegm production reports no chest pain PND or orthopnea Notes Reviewed: Yes: Events from last night noted and discussed with Clinical Staff Current Medication List: Reviewed Currently: Reports: Cough, HOANG, SOB, Sputum, Reflux Sx DVT Prophylaxis: Yes - Physical Examination Vital Signs and I&O: Last Vital Signs Temp 97.5 F 12/19/16 06:00 Pulse 103 12/19/16 08:17 Resp 20 12/19/16 08:17 BP 134/77 12/19/16 08:17 Pulse Ox 95 12/19/16 08:17 Oxygen Pulse Oxygen Saturation 95 O2 Device Nasal Cannula Oxygen Flow Rate 1 Fraction of Inspired Oxygen ( FIO2) Intake & Output 12/16/16 12/17/16 12/18/16 12/19/16 23:59 23:59 23:59 23:59 Intake Total 3429 3231 4085 240 Output Total 1250 1750 1575 700 Balance 2179 1481 2510 -460 Patient's weight 51.755 kg 56.245 kg 52.889 kg 53.581 kg General: Alert, Oriented x3, Cooperative, Mild distress HEENT: Normal, PERRLA, EOMI (Sclera white), Anicteric Sclera Neck: Non-tender, Normal Trachea alignment, Normal inspection, Limited range of motion Lymphatics: Normal Respiratory: Diminished, Rhonchi. negative: Accessory Muscle Use, Stridor, Tachypnea, Wheezes Cardiovascular: Regular rate, Normal S1, No Gallops,Rubs/Murmurs, Normal S2, Murmurs GI: Normal bowel sounds, Soft, Non tender (non distended), No hepatospenomegaly , No masses Extremities/Musculoskeletal: Edema, Clubbing, Cyanosis, DJD, Other (Right stump with VAC device in place,) Skin: Warm,Dry and Intact, No rashes, No breakdown, No significant lesion Neurological: Normal speech, Normal tone, Cranial nerves 3-12 NL Psych/Mental Status: Agitated, Anxious Lab/DI/Studies Reviewed: Allergies morphine Adverse Reaction (Verified 12/16/16 10:47) Nausea/Vomiting ondansetron HCl [From Zofran (as hydrochloride)] Adverse Reaction (Verified 02/26 10:47) Dizziness 02/07/17 04:55 12/19/16 04:55 Last Vital Signs Temp 97.5 F 12/19/16 06:00 Pulse 103 12/19/16 08:17 Resp 20 12/19/16 08:17 BP 134/77 12/19/16 08:17 Pulse Ox 95 12/19/16 08:17 - Assessment (1) Sepsis Resolved A41.9 - SEPSIS, UNSPECIFIED ORGANISM Qualifiers: Sepsis type: sepsis due to unspecified organism Qualified Code(s): A41.9 - Sepsis, unspecified organism Comment/Plan: Continue IV antibiotics and IV fluids.. Clinically improved (2) Osteomyelitis Acute M86.9 - OSTEOMYELITIS, UNSPECIFIED Qualifiers: Laterality: right Comment/Plan: Clinical presentation most consistent with osteomyelitis. PICC line will be inserted and patient will receive 4-6 weeks of IV antibiotics (3) Urinary tract infection Acute N39.0 - URINARY TRACT INFECTION, SITE NOT SPECIFIED Qualifiers: Urinary tract infection type: acute cystitis Hematuria presence: without hematuria Qualified Code(s): N30.00 - Acute cystitis without hematuria Comment/Plan: Preliminary report shows gram-negative rods. Continue antibiotics (4) Wound dehiscence, surgical Acute T81.31XA - DISRUPTION OF EXTERNAL OPERATION (SURGICAL) WOUND, NEC, INIT Qualifiers: Encounter type: initial encounter Qualified Code(s): T81.31XA - Disruption of external operation (surgical) wound, not elsewhere classified, initial encounter Comment/Plan: As per surgery, VAC device in place (5) Acute hypoactive delirium due to multiple etiologies Acute F05 - DELIRIUM DUE TO KNOWN PHYSIOLOGICAL CONDITION Comment/Plan: Mentation improved. Patient alert and interactive follows commands. Continue supportive care ,minimize sedation (6) Anemia Acute D64.9 - ANEMIA, UNSPECIFIED Qualifiers: Anemia type: unspecified type Qualified Code(s): D64.9 - Anemia, unspecified Comment/Plan: Monitor counts transfuse as needed indicated (7) Acute on chronic renal failure Acute N17.9 - ACUTE KIDNEY FAILURE, UNSPECIFIED; N18.9 - CHRONIC KIDNEY DISEASE, UNSPECIFIED Comment/Plan: Renal function improved. Continue IV fluids avoid any nephrotoxins. (8) Hyperkalemia Resolved E87.5 - HYPERKALEMIA Comment/Plan: Resolved. Given hypokalemia patient were required potassium replacement (9) CHF (congestive heart failure) Acute I50.9 - HEART FAILURE, UNSPECIFIED Qualifiers: Congestive heart failure type: systolic Congestive heart failure chronicity : acute Qualified Code(s): I50.21 - Acute systolic (congestive) heart failure Comment/Plan: Reportedly EF 40-45%. Compensated at this time, monitor weight and fluid balance continue salt restriction when eating. (10) Phantom pain Acute R52 - PAIN, UNSPECIFIED Comment/Plan: Continue OxyContin and p.r.n. Oxy-IR (11) Hypertension Chronic I10 - ESSENTIAL (PRIMARY) HYPERTENSION Qualifiers: Hypertension type: essential hypertension Qualified Code(s): I10 - Essential (primary) hypertension Comment/Plan: Continue meds keep SBP less than 140 (12) GERD (gastroesophageal reflux disease) Acute K21.9 - GASTRO-ESOPHAGEAL REFLUX DISEASE WITHOUT ESOPHAGITIS Qualifiers: Esophagitis presence: without esophagitis Qualified Code(s): K21.9 - Gastro -esophageal reflux disease without esophagitis Comment/Plan: Continue PPI Case Care Discussed with: Patient, Consultants, Nursing Staff, Respiratory Therapy, [employer] Education/Counseling Given To: Patient Education/Counseling Given Regarding: Diagnosis, Treatment, Prognosis, Follow Up Total Time: 55 min . Critical Care: No Code: 92050 (12+)
[2016-12-19] MEDS ORDERED: PANTOPRAZOLE 40 MG VIAL IV ONE (10:00)
--- NOTE | 2016-12-19 10:39 | DIRPT ---
CLINICAL DATA: Vomiting EXAM: DG ABDOMEN ACUTE W/ 1V CHEST COMPARISON: Chest x-ray dated 11/10/2016. FINDINGS: Single view of the chest: Heart size is upper normal, stable. Atherosclerotic calcifications again seen at the aortic arch. Lungs remain clear. Subtle opacity at the left lung base is probably atelectasis. Lungs otherwise clear. No pleural effusions seen. Osseous structures about the chest are unremarkable. Upright and supine views of the abdomen: Bowel gas pattern is nonobstructive. No evidence of soft tissue mass or abnormal fluid collection. No evidence of free intraperitoneal air. Prominent atherosclerotic vascular calcifications noted throughout the abdomen and pelvis. Degenerative changes within the thoracolumbar spine. No acute osseous abnormality. IMPRESSION: 1. Probable mild atelectasis at the left lung base. Lungs otherwise clear. 2. Nonobstructive bowel gas pattern and no evidence of acute intra-abdominal abnormality identified. 3. Prominent calcified atherosclerosis. Electronically Signed By: Imtiaz Ross M.D. On: 12/19/2016 10:37
[2016-12-19] MEDS: NS 1,000 ML IV SCH (12:34)
[2016-12-19] MEDS ORDERED: LIDOCAINE 1% 30 ML VIAL (PRESERVATIVE FREE) ONE (13:46)
--- NOTE | 2016-12-19 15:02 | DIRPT ---
CLINICAL DATA: Wound infection, needs long-term venous access for antibiotics. EXAM: PICC PLACEMENT WITH ULTRASOUND AND FLUOROSCOPY FLUOROSCOPY TIME: 6 seconds TECHNIQUE: After written informed consent was obtained, patient was placed in the supine position on angiographic table. Patency of the right basilic vein was confirmed with ultrasound with image documentation. An appropriate skin site was determined. Skin site was marked. Region was prepped using maximum barrier technique including cap and mask, sterile gown, sterile gloves, large sterile sheet, and Chlorhexidine as cutaneous antisepsis. The region was infiltrated locally with 1% lidocaine. Under real-time ultrasound guidance, the right basilic vein was accessed with a 21 gauge micropuncture needle; the needle tip within the vein was confirmed with ultrasound image documentation. Needle exchanged over a 018 guidewire for a peel-away sheath, through which a 5-Sammarinese single-lumen power injectable PICC trimmed to 41 cm was advanced, positioned with its tip near the cavoatrial junction. Spot chest radiograph confirms appropriate catheter position. Catheter was flushed per protocol and secured externally. The patient tolerated procedure well. COMPLICATIONS: COMPLICATIONS none IMPRESSION: 1. Technically successful five Sammarinese single lumen power injectable PICC placement Electronically Signed By: Basilia Wang M.D. On: 12/19/2016 15:00
[2016-12-19] MEDS: ENOXAPARIN 40 MG/0.4 ML PFS SQ SCH (16:21)
[2016-12-20] MEDS: PIPERACILLIN AND TAZOBACTAM 4.5 GM in D5W 100 ML IV SCH ×3 (02:06→18:01)
[2016-12-20] MEDS: ACETAMINOPHEN 325 MG/TAB TABLET PO SCH ×4 (02:07→20:03)
[2016-12-20] MEDS: PANTOPRAZOLE 40 MG TAB PO SCH ×2 (04:19→18:02)
[2016-12-20] MEDS: NS 1,000 ML IV SCH ×2 (04:19→14:58)
[2016-12-20] MEDS: OXYCODONE HCL 5 MG TABLET PO PRN ×2 (04:19→09:39)
[2016-12-20] MEDS: SODIUM CHLORIDE 0.9% 3 ML FLUSH FLUSH SCH ×2 (04:19→18:02)
[2016-12-20] MEDS: [UNRECOGNIZED DRUG - OTHER] PO SCH ×3 (04:19→20:03)
[2016-12-20 04:52] LABS: AUTOMATED BASOPHIL 1.2 % (0-2); AUTOMATED EOSINOPHIL 1.5 % (0-5); AUTOMATED LYMPH 11.5 % (17-44); AUTOMATED MONOCYTE 8.4 % (3-10); AUTOMATED NEUTROPHIL 77.4 % (45-76); MPV 8.4 fL (7.4-10.4)
[2016-12-20 05:14] LABS: BLOOD UREA NITROGEN 9 MG/DL (7-17); CALCIUM 7.6 MG/DL (8.4-10.2); CALCULATED OSMOLALITY 254 MOs/Kg (270-290); CHLORIDE 104 mEq/L (98-107); GLUCOSE 78 mg/dL (70-99); SODIUM LEVEL 133 mEq/L (137-146)
[2016-12-20] MEDS: REGULAR INSULIN 100 UNITS/ML - 3 ML VIAL SQ SCH ×4 (05:38→20:36)
[2016-12-20] MEDS: POTASSIUM CHLORIDE 20 MEQ TAB PO SCH ×2 (07:36→18:02)
[2016-12-20] MEDS: METOPROLOL TARTRATE 25 MG TAB PO SCH ×2 (07:36→20:03)
[2016-12-20] MEDS: ATORVASTATIN 20 MG TAB PO SCH (07:36)
[2016-12-20] MEDS: OXYCODONE (OxyCONTIN) 10 MG TAB PO SCH (12:21)
[2016-12-20] MEDS ORDERED: HYDROmorphone 1 MG INJECTION IV PRN (15:34)
[2016-12-20] MEDS ORDERED: OXYCODONE HCL 5 MG TABLET PO PRN (15:38)
[2016-12-20] MEDS: ENOXAPARIN 40 MG/0.4 ML PFS SQ SCH (18:02)
[2016-12-20] MEDS ORDERED: ALPRAZOLAM 0.5 MG TAB PO PRN (18:05)
--- NOTE | 2016-12-20 18:29 | GENMEDPROG ---
Subjective Note: Patient in bed responsive follows commands still fair amount of pain involving right stump. Denies and difficulties breathing cough phlegm production reports no nausea vomiting. P.o. intake poor Notes Reviewed: Yes: Events from last night noted and discussed with Clinical Staff Currently: Reports: Cough, HOANG, SOB, Sputum, Reflux Sx DVT Prophylaxis: Yes - Physical Examination Vital Signs and I&O: Last Vital Signs Temp 98.0 F 12/20/16 15:37 Pulse 102 12/20/16 16:00 Resp 18 12/20/16 15:37 BP 110/59 L 12/20/16 15:37 Pulse Ox 96 12/20/16 15:37 Oxygen Pulse Oxygen Saturation 96 O2 Device Nasal Cannula Oxygen Flow Rate 1 Fraction of Inspired Oxygen ( FIO2) Intake & Output 12/17/16 12/18/16 12/19/16 12/20/16 23:59 23:59 23:59 23:59 Intake Total 3231 4085 2677 1503 Output Total 1750 1575 2600 2640 Balance 1481 2510 77 -1137 Patient's weight 56.245 kg 52.889 kg 53.581 kg 53.779 kg General: Alert, Oriented x3, Cooperative, Mild distress HEENT: Normal, PERRLA, EOMI (Sclera white), Anicteric Sclera Neck: Non-tender, Normal Trachea alignment, Normal inspection, Limited range of motion Lymphatics: Normal Respiratory: Diminished, Rhonchi. negative: Accessory Muscle Use, Stridor, Tachypnea, Wheezes Cardiovascular: Regular rate, Normal S1, No Gallops,Rubs/Murmurs, Normal S2, Murmurs GI: Normal bowel sounds, Soft, Non tender (non distended), No hepatospenomegaly , No masses Extremities/Musculoskeletal: Edema, Clubbing, Cyanosis, DJD, Other (Right stump with VAC device in place,) Skin: Warm,Dry and Intact, No rashes, No breakdown, No significant lesion Neurological: Normal speech, Normal tone, Cranial nerves 3-12 NL Psych/Mental Status: Agitated, Anxious Lab/DI/Studies Reviewed: Allergies morphine Adverse Reaction (Verified 12/16/16 10:47) Nausea/Vomiting ondansetron HCl [From Zofran (as hydrochloride)] Adverse Reaction (Verified 02/26 10:47) Dizziness 12/20/16 04:15 12/20/16 04:15 Microbiology 12/16/16 18:20 Urine - Nathan Catheter Urine Culture - Final K.pneum. ssp pneumoniae 12/16/16 15:52 Nares Nasal Screen MRSA (PCR)([facility]) - Final POSITIVE for MRSA DNA -------- In the absence of signs/symptoms of infection, nasal colonization with MRSA is not an indication of vancomycin therapy. Vancomycin is NOT EFFECTIVE for eradication of MRSA nasal colonization. Abnormal Lab Results 12/19/16 12/20/16 12/20/16 20:15 04:15 04:15 RBC 2.85 L Hgb 8.5 L Hct 26.1 L MCHC 32.7 L RDW 15.9 H Neut % (Auto) 77.4 H Lymph % (Auto) 11.5 L Sodium 133 L POC Capillary Glucose 101 H Calculated Osmolality 254 L Calcium 7.6 L 12/20/16 11:38 RBC Hgb Hct MCHC RDW Neut % (Auto) Lymph % (Auto) Sodium POC Capillary Glucose 101 H Calculated Osmolality Calcium - Assessment (1) Sepsis Resolved A41.9 - SEPSIS, UNSPECIFIED ORGANISM Qualifiers: Sepsis type: sepsis due to unspecified organism Qualified Code(s): A41.9 - Sepsis, unspecified organism Comment/Plan: Continue IV antibiotics and IV fluids.. Clinically improved (2) Osteomyelitis Acute M86.9 - OSTEOMYELITIS, UNSPECIFIED Qualifiers: Laterality: right Comment/Plan: Clinical presentation most consistent with osteomyelitis. PICC line will be inserted and patient will receive 4-6 weeks of IV antibiotics . Case discussed with Chinmay AHUJA. (3) Urinary tract infection Acute N39.0 - URINARY TRACT INFECTION, SITE NOT SPECIFIED Qualifiers: Urinary tract infection type: acute cystitis Hematuria presence: without hematuria Qualified Code(s): N30.00 - Acute cystitis without hematuria Comment/Plan: Culture shows multidrug resistant Klebsiella (4) Wound dehiscence, surgical Acute T81.31XA - DISRUPTION OF EXTERNAL OPERATION (SURGICAL) WOUND, NEC, INIT Qualifiers: Encounter type: initial encounter Qualified Code(s): T81.31XA - Disruption of external operation (surgical) wound, not elsewhere classified, initial encounter Comment/Plan: As per surgery, VAC device in place. Continue local wound care (5) Acute hypoactive delirium due to multiple etiologies Acute F05 - DELIRIUM DUE TO KNOWN PHYSIOLOGICAL CONDITION Comment/Plan: Mentation improved. Patient alert and interactive follows commands. Continue supportive care ,minimize sedation (6) Anemia Acute D64.9 - ANEMIA, UNSPECIFIED Qualifiers: Anemia type: unspecified type Qualified Code(s): D64.9 - Anemia, unspecified Comment/Plan: Monitor counts transfuse as needed indicated (7) Acute on chronic renal failure Acute N17.9 - ACUTE KIDNEY FAILURE, UNSPECIFIED; N18.9 - CHRONIC KIDNEY DISEASE, UNSPECIFIED Comment/Plan: Renal function improved. Continue IV fluids avoid any nephrotoxins. (8) Hyperkalemia Resolved E87.5 - HYPERKALEMIA Comment/Plan: Resolved. Given hypokalemia patient were required potassium replacement (9) CHF (congestive heart failure) Acute I50.9 - HEART FAILURE, UNSPECIFIED Qualifiers: Congestive heart failure type: systolic Congestive heart failure chronicity : acute Qualified Code(s): I50.21 - Acute systolic (congestive) heart failure Comment/Plan: Reportedly EF 40-45%. Compensated at this time, monitor weight and fluid balance continue salt restriction when eating. (10) Phantom pain Acute R52 - PAIN, UNSPECIFIED Comment/Plan: Continue OxyContin and p.r.n. Oxy-IR. Up titrate doses for better pain control (11) Hypertension Chronic I10 - ESSENTIAL (PRIMARY) HYPERTENSION Qualifiers: Hypertension type: essential hypertension Qualified Code(s): I10 - Essential (primary) hypertension Comment/Plan: Continue meds keep SBP less than 140 (12) GERD (gastroesophageal reflux disease) Acute K21.9 - GASTRO-ESOPHAGEAL REFLUX DISEASE WITHOUT ESOPHAGITIS Qualifiers: Esophagitis presence: without esophagitis Qualified Code(s): K21.9 - Gastro -esophageal reflux disease without esophagitis Comment/Plan: Continue PPI Case Care Discussed with: Patient, Consultants, Nursing Staff, [employer] Education/Counseling Given To: Patient Education/Counseling Given Regarding: Diagnosis, Treatment, Prognosis, Follow Up Total Time: 45 min . Critical Care: No Code: 49646 (12+)
[2016-12-20] MEDS: OXYCODONE (OxyCONTIN) 20 MG TAB PO SCH (20:03)
[2016-12-20] MEDS ORDERED: LORAZEPAM 2 MG/ML VIAL IV PRN (20:30)
[2016-12-21] MEDS ORDERED: HEPARIN 500 UNITS/5 ML (100 UNITS/ML) SYR FLUSH ONE (00:30)
[2016-12-21] MEDS: PIPERACILLIN AND TAZOBACTAM 4.5 GM in D5W 100 ML IV SCH ×2 (02:14→10:59)
[2016-12-21] MEDS: ACETAMINOPHEN 325 MG/TAB TABLET PO SCH ×2 (02:14→08:55)
[2016-12-21 04:47] VITALS: BMI 19.8
[2016-12-21 05:23] LABS: BLOOD UREA NITROGEN 7 MG/DL (7-17); CALCIUM 7.7 MG/DL (8.4-10.2); CALCULATED OSMOLALITY 258 MOs/Kg (270-290); CHLORIDE 104 mEq/L (98-107); GLUCOSE 70 mg/dL (70-99); SODIUM LEVEL 136 mEq/L (137-146)
[2016-12-21 05:27] LABS: AUTOMATED BASOPHIL 1.2 % (0-2); AUTOMATED EOSINOPHIL 2.4 % (0-5); AUTOMATED LYMPH 12.5 % (17-44); AUTOMATED MONOCYTE 7.9 % (3-10); MPV 8.5 fL (7.4-10.4)
[2016-12-21] MEDS: PANTOPRAZOLE 40 MG TAB PO SCH (06:07)
[2016-12-21] MEDS: [UNRECOGNIZED DRUG - OTHER] PO SCH (06:07)
[2016-12-21] MEDS: SODIUM CHLORIDE 0.9% 3 ML FLUSH FLUSH SCH (06:41)
[2016-12-21] MEDS ORDERED: REGULAR INSULIN 100 UNITS/ML - 3 ML VIAL SQ SCH (07:00)
[2016-12-21 07:44] VITALS: BP 127/57; TEMP 97.5
[2016-12-21] MEDS: METOPROLOL TARTRATE 25 MG TAB PO SCH (08:55)
[2016-12-21] MEDS: POTASSIUM CHLORIDE 20 MEQ TAB PO SCH (08:56)
[2016-12-21] MEDS ORDERED: ATORVASTATIN 20 MG TAB PO ONE (09:00)
--- NOTE | 2016-12-21 09:52 | PCM.DCS92 ---
- Final/Secondary Discharge Diagnosis (1) Sepsis Resolved A41.9 - SEPSIS, UNSPECIFIED ORGANISM sepsis due to unspecified organism A41.9 - Sepsis, unspecified organism Comment: Continue IV antibiotics and IV fluids.. Clinically improved (2) Osteomyelitis Acute M86.9 - OSTEOMYELITIS, UNSPECIFIED Present on Admission: Yes right Comment: Clinical presentation most consistent with osteomyelitis. PICC line will be inserted and patient will receive minimum of 4 weeks of IV antibiotics . Case discussed with Chinmay AHUJA. (3) Urinary tract infection Acute N39.0 - URINARY TRACT INFECTION, SITE NOT SPECIFIED acute cystitis without hematuria N30.00 - Acute cystitis without hematuria Comment: Culture shows multidrug resistant Klebsiella . Will treat with 1 time dose of fosfomycin again based on ID recommendation. Due to technical difficulties in obtaining this medication timely fashion dose should be provided upon arrival to [place] (4) Wound dehiscence, surgical Acute T81.31XA - DISRUPTION OF EXTERNAL OPERATION (SURGICAL) WOUND, NEC, INIT initial encounter T81.31XA - Disruption of external operation (surgical) wound, not elsewhere classified, initial encounter Comment: As per surgery, VAC device in place. Continue local wound care. Continue postop surgical care (5) Acute hypoactive delirium due to multiple etiologies Resolved F05 - DELIRIUM DUE TO KNOWN PHYSIOLOGICAL CONDITION Present on Admission: Yes Comment: Mentation improved. Patient alert and interactive follows commands. Continue supportive care ,minimize sedation (6) Anemia Acute D64.9 - ANEMIA, UNSPECIFIED unspecified type D64.9 - Anemia, unspecified Comment: Monitor counts transfuse as needed indicated (7) Acute on chronic renal failure Resolved N17.9 - ACUTE KIDNEY FAILURE, UNSPECIFIED; N18.9 - CHRONIC KIDNEY DISEASE, UNSPECIFIED Present on Admission: Yes Comment: Renal function improved. Continue IV fluids avoid any nephrotoxins. (8) Hyperkalemia Resolved E87.5 - HYPERKALEMIA Comment: Resolved. Given hypokalemia patient were required potassium replacement (9) CHF (congestive heart failure) Acute I50.9 - HEART FAILURE, UNSPECIFIED systolic acute I50.21 - Acute systolic (congestive) heart failure Comment: Reportedly EF 40-45%. Compensated at this time, monitor weight and fluid balance continue salt restriction when eating. (10) Phantom pain Acute R52 - PAIN, UNSPECIFIED Present on Admission: Yes Comment: Continue OxyContin and p.r.n. Oxy-IR. Up titrate doses for better pain control (11) Hypertension Chronic I10 - ESSENTIAL (PRIMARY) HYPERTENSION essential hypertension I10 - Essential (primary) hypertension Comment: Continue meds keep SBP less than 140 (12) GERD (gastroesophageal reflux disease) Acute K21.9 - GASTRO-ESOPHAGEAL REFLUX DISEASE WITHOUT ESOPHAGITIS without esophagitis K21.9 - Gastro-esophageal reflux disease without esophagitis Comment: Continue PPI Discharge Disposition: Trans. to Other Hospital Discharge Condition: Improved Cognitive Discharge Status: Unimpaired Fuctional Discharge Status: Wheelchair Assistance, Bed Bound, Total Assistance Required, Fall Risk, Deconditioning Physician Follow up/Referrals: None,No Provider [Primary Care Provider] - One Week Rehan Hobbs MD [Staff Physician] - 1-2 Days Home Medications / New Prescriptions: New Albuterol/Ipratropium Neb [Duoneb] 3 ml NEB Q6H #120 nebu Ampicillin-Sulbactam [Unasyn] 3 gm IV TID #30 vial Fosfomycin Tromethamine [Monurol] 3 gm PO DIR #1 packet Oxycodone (OxyCONTIN) Ext Rel [Oxycontin] 20 mg PO BID #60 tab Oxycodone Immediate Release [Oxycodone Immediate Release (OxyIR)] 5 mg PO Q4H PRN #60 tab PRN Reason: Pain Potassium Chloride 40 meq PO DAILY #60 tablet.er Probiotic Blend [Stacie Q] 1 each PO BID #60 tab Senna Concentrate [Senokot] 2 tab PO DAILY #60 tablet Vancomycin HCl [Vancomycin] 1,000 mg IV DIR #14 sdv Continue Metoprolol Tartrate 50 mg PO BID #60 tablet Atorvastatin Calcium [Lipitor] 20 mg PO DAILY #30 tablet Lisinopril [Prinivil] 2.5 mg PO DAILY #30 tablet Pantoprazole Sodium [Protonix] 40 mg PO BID Magnesium Oxide [Mag-Ox] 400 mg PO BID Sucralfate [Carafate] 1 gm PO TID Discontinued Potassium Chloride [Klor-Con M20] 40 meq PO BID Oxycodone (OxyCONTIN) Ext Rel [Oxycontin] 10 mg PO Q12H Hydromorphone HCl [Dilaudid] 1 mg PO Q6H PRN PRN Reason: Pain O2 Device: Nasal Cannula Oxygen to be used after Discharge: Continuous Diet at Discharge: Regular, Low Salt, High Fiber Activity: As Tolerated Call Office For: Worsening Symptoms, Wound is Draining Pus, Fever over 101 F, Wound is Painful Discontinue use of:: Alcohol, All Illegal Substances, All Types of Tobacco - DC Summary Notes Hospital Course Note:: Discharge summary on patient named ANDREW BRADFORD admitted to [facility] on 12/16/16 by Fran Bernal MD. Date of discharge is []. Patient was initially brought to emergency room on December 16 for evaluation of right lower extremity stump discharge and wound dehiscence. Please refer to the admission for further details. Upon arrival in ED patient was found confused disoriented agitated, she was found hypokalemic with potassium was 7.9 and creatinine of 1.9. Her stump wound was found to be open with exposed bone, she was found to be in atrial fibrillation as well. Patient was admitted to monitor bed treatment of IV antibiotics was instituted ,throughout hospitalization patient has received IV vancomycin and Zosyn. UA was positive and urine culture grew multidrug resistant Klebsiella. Patient was follow by surgery and based on stump assessment and evaluation wound VAC was applied. Patient continued to require narcotic analgesics for severe stump and phantom pain. Her potassium was corrected she still gentle IV hydration and her creatinine has normalized. Nutritional support was maximized however her p.o. intake remained poor. Her hemodynamics have improved and she was stable from pulmonary perspective. Patient is anemic and her hemoglobin has oscillating between 9 and 10. Discussion was held with patient daughter and given complexity of underlying medical problems need for skilled wound care and IV antibiotics recommendation was made for skilled specialty care at [facility]. I have spoken with ID attending at [facility] Dr. Ma at about infectious issues. Dr. Ma has recommended minimum of 4 weeks of IV antibiotics for osteomyelitis and single dose of fosfomycin for Klebsiella multidrug resistant UTI. Due to ran of Hospital pharmacy inability to obtain fosfomycin prior to discharge this medication should be given to the patient on arrival to [place]. Surgical consultation should be obtained from Dr. Gilbert- patient may require stump revision. On December 21 in clinically improved condition patient has been transferred to [facility] for further treatment as outlined above. Total Time: 50 min . Code: 09496 (>30min.) - Physical Exam Vital Signs: Last Vital Signs Temp 97.5 F 12/21/16 07:44 Pulse 82 12/21/16 07:44 Resp 18 12/21/16 07:44 BP 127/57 L 12/21/16 07:44 Pulse Ox 98 12/21/16 07:44 Oxygen Pulse Oxygen Saturation 98 O2 Device Nasal Cannula Oxygen Flow Rate 1 Fraction of Inspired Oxygen ( FIO2) Constitutional: No apparent distress, Alert Oriented to: Time, Person, Place, Not Oriented, Unable to Test - HEENT Head: Normal (normocephalic,atraumatic, trachea midline) Eye: Normal (EOMI, Sclera white) Oropharynx: Normal (moist) ENT EAC: Normal TMJ: Normal Nose: No Symptoms Reported (without discharge or bleeding) - Respiratory/Cardiovascular Respiratory: Diminished, Rhonchi. negative: Accessory Muscle Use, Stridor, Tachypnea, Wheezes Cardiovascular: Normal - GI Auscultation: Normal Palpation: Normal (soft, non distended and nontender) Tenderness: Non tender Rectal Exam: Deferred - Exam Deferred: Yes - Musculoskeletal Back: Normal Extremities: Normal, Other (At right lower extremity surgical site there is an open wound with exposed tendon, muscle and bone. There is scant drainage. No abscess identified. No surrounding erythema. No purulent drainage at this time. ) - Integumentary Skin: Normal, Warm, Dry Lymphatics: Normal - Neurologic Memory Impaired: Normal, Unable to Test Motor Function: Abnormal Cranial Nerve: Normal Cerebellar: Unable to Test Mood Description: Anxious. negative: Appropriate, Calm Thought: negative: Coherent Perception: Normal - Other Exam Other Exam Findings: Allergies morphine Adverse Reaction (Verified 12/16/16 10:47) Nausea/Vomiting ondansetron HCl [From Zofran (as hydrochloride)] Adverse Reaction (Verified 02/26 10:47) Dizziness Last Vital Signs Temp 97.5 F 12/21/16 07:44 Pulse 82 12/21/16 07:44 Resp 18 12/21/16 07:44 BP 127/57 L 12/21/16 07:44 Pulse Ox 98 12/21/16 07:44 12/21/16 04:35 12/21/16 04:35 Abnormal Lab Results 12/20/16 12/21/16 12/21/16 11:38 04:35 04:35 RBC 3.16 L Hgb 9.5 L D Hct 29.1 L MCHC 32.6 L RDW 15.8 H Lymph % (Auto) 12.5 L Sodium 136 L Potassium 3.2 L POC Capillary Glucose 101 H Calculated Osmolality 258 L Calcium 7.7 L Magnesium 1.50 L 12/21/16 05:56 RBC Hgb Hct MCHC RDW Lymph % (Auto) Sodium Potassium POC Capillary Glucose 60 L Calculated Osmolality Calcium Magnesium Microbiology 12/16/16 18:20 Urine - Nathan Catheter Urine Culture - Final K.pneum. ssp pneumoniae 12/16/16 15:52 Nares Nasal Screen MRSA (PCR)(SABAS) - Final POSITIVE for MRSA DNA -------- In the absence of signs/symptoms of infection, nasal colonization with MRSA is not an indication of vancomycin therapy. Vancomycin is NOT EFFECTIVE for eradication of MRSA nasal colonization. Active Problems Acute on chronic renal failure (Acute) N17.9, N18.9 Renal function improved. Continue IV fluids avoid any nephrotoxins. Anemia (Acute) D64.9 Monitor counts transfuse as needed indicated GERD (gastroesophageal reflux disease) (Acute) K21.9 Continue PPI Leukocytosis (Acute) D72.829 Due to wound dehiscence and sepsis. Osteomyelitis (Acute) M86.9 Clinical presentation most consistent with osteomyelitis. PICC line will be inserted and patient will receive 4-6 weeks of IV antibiotics . Case discussed with Chinmay Sanchez ID. Pain of right lower extremity (Acute) M79.604 Phantom pain (Acute) R52 Continue OxyContin and p.r.n. Oxy-IR. Up titrate doses for better pain control Wound dehiscence, surgical (Acute) T81.31XA As per surgery, VAC device in place. Continue local wound care Resolved Problems Hyperkalemia (Resolved) E87.5 Resolved. Given hypokalemia patient were required potassium replacement Sepsis (Resolved) A41.9 Continue IV antibiotics and IV fluids.. Clinically improved Discharge Home Medication List Metoprolol Tartrate 50 mg PO BID #60 tablet 04/03/16 [Rx Confirmed 12/16/16] Atorvastatin Calcium [Lipitor] 20 mg PO DAILY #30 tablet 11/10/16 [Rx Confirmed 12/16/16] Lisinopril [Prinivil] 2.5 mg PO DAILY #30 tablet 11/10/16 [Rx Confirmed 12/16/16 ] Magnesium Oxide [Mag-Ox] 400 mg PO BID 12/16/16 [History Confirmed 12/16/16] Pantoprazole Sodium [Protonix] 40 mg PO BID 12/16/16 [History Confirmed 12/16/16 ] Sucralfate [Carafate] 1 gm PO TID 12/16/16 [History Confirmed 12/16/16] Albuterol/Ipratropium Neb [Duoneb] 3 ml NEB Q6H #120 nebu 12/21/16 [Rx] Ampicillin-Sulbactam [Unasyn] 3 gm IV TID #30 vial 12/21/16 [Rx] Fosfomycin Tromethamine [Monurol] 3 gm PO DIR #1 packet 12/21/16 [Rx] Oxycodone (OxyCONTIN) Ext Rel [Oxycontin] 20 mg PO BID #60 tab 12/21/16 [Rx] Oxycodone Immediate Release [Oxycodone Immediate Release (OxyIR)] 5 mg PO Q4H PRN #60 tab 12/21/16 [Rx] Potassium Chloride 40 meq PO DAILY #60 tablet.er 12/21/16 [Rx] Probiotic Blend [Stacie Q] 1 each PO BID #60 tab 12/21/16 [Rx] Senna Concentrate [Senokot] 2 tab PO DAILY #60 tablet 12/21/16 [Rx] Vancomycin HCl [Vancomycin] 1,000 mg IV DIR #14 sdv 12/21/16 [Rx] New Discharge Medications (Rx) Albuterol/Ipratropium Neb [Duoneb] 3 ml NEB Q6H #120 nebu 12/21/16 [Rx] Ampicillin-Sulbactam [Unasyn] 3 gm IV TID #30 vial 12/21/16 [Rx] Fosfomycin Tromethamine [Monurol] 3 gm PO DIR #1 packet 12/21/16 [Rx] Oxycodone (OxyCONTIN) Ext Rel [Oxycontin] 20 mg PO BID #60 tab 12/21/16 [Rx] Oxycodone Immediate Release [Oxycodone Immediate Release (OxyIR)] 5 mg PO Q4H PRN #60 tab 12/21/16 [Rx] Potassium Chloride 40 meq PO DAILY #60 tablet.er 12/21/16 [Rx] Probiotic Blend [Stacie Q] 1 each PO BID #60 tab 12/21/16 [Rx] Senna Concentrate [Senokot] 2 tab PO DAILY #60 tablet 12/21/16 [Rx] Vancomycin HCl [Vancomycin] 1,000 mg IV DIR #14 sdv 12/21/16 [Rx] Home Medications Metoprolol Tartrate 50 mg PO BID #60 tablet 04/03/16 Atorvastatin Calcium [Lipitor] 20 mg PO DAILY #30 tablet 11/10/16 Lisinopril [Prinivil] 2.5 mg PO DAILY #30 tablet 11/10/16 Magnesium Oxide [Mag-Ox] 400 mg PO BID 12/16/16 Pantoprazole Sodium [Protonix] 40 mg PO BID 12/16/16 Sucralfate [Carafate] 1 gm PO TID 12/16/16 Albuterol/Ipratropium Neb [Duoneb] 3 ml NEB Q6H #120 nebu 12/21/16 Ampicillin-Sulbactam [Unasyn] 3 gm IV TID #30 vial 12/21/16 Fosfomycin Tromethamine [Monurol] 3 gm PO DIR #1 packet 12/21/16 Oxycodone (OxyCONTIN) Ext Rel [Oxycontin] 20 mg PO BID #60 tab 12/21/16 Oxycodone Immediate Release [Oxycodone Immediate Release (OxyIR)] 5 mg PO Q4H PRN #60 tab 12/21/16 Potassium Chloride 40 meq PO DAILY #60 tablet.er 12/21/16 Probiotic Blend [Stacie Q] 1 each PO BID #60 tab 12/21/16 Senna Concentrate [Senokot] 2 tab PO DAILY #60 tablet 12/21/16 Vancomycin HCl [Vancomycin] 1,000 mg IV DIR #14 sdv 12/21/16
[2016-12-21] MEDS: OXYCODONE (OxyCONTIN) 20 MG TAB PO SCH (10:59)
[2016-12-21 11:32] VITALS: PULSE 71
[2016-12-21] MEDS ORDERED: MAGNESIUM OXIDE 400 MG TAB PO SCH (12:00)
== END 2016-12-21 13:46 | DRG 871 ==
LOC: ED 10:41 → PCU 13:00 → ICU 15:13 → PCU 12-17 11:05
PROVIDERS: ADMIT Internal Medicine; ATTEND Internal Medicine
PROC: 02HV33Z Insertion of Infusion Device into Superior Vena Cava, Percutaneous Approach (ICD-10-PCS; principal; 2016-12-19)
PROC: B548ZZA Ultrasonography of Superior Vena Cava, Guidance (ICD-10-PCS; 2016-12-19)
DX: A41.9 Sepsis, unspecified organism (principal); I50.21 Acute systolic (congestive) heart failure; N17.9 Acute kidney failure, unspecified; F05 Delirium due to known physiological condition; D64.9 Anemia, unspecified; I12.9 Hypertensive chronic kidney disease with stage 1 through stage 4 chronic kidney disease, or unspecified chronic kidney disease; E11.9 Type 2 diabetes mellitus without complications; M86.10 Other acute osteomyelitis, unspecified site; N30.00 Acute cystitis without hematuria; T81.31XA Disruption of external operation (surgical) wound, not elsewhere classified, initial encounter; B96.1 Klebsiella pneumoniae [K. pneumoniae] as the cause of diseases classified elsewhere; Z16.24 Resistance to multiple antibiotics; Y83.8 Other surgical procedures as the cause of abnormal reaction of the patient, or of later complication, without mention of misadventure at the time of the procedure; N18.9 Chronic kidney disease, unspecified; E87.5 Hyperkalemia; R52 Pain, unspecified; K21.9 Gastro-esophageal reflux disease without esophagitis; Z89.511 Acquired absence of right leg below knee; Z89.611 Acquired absence of right leg above knee; I25.2 Old myocardial infarction; J44.9 Chronic obstructive pulmonary disease, unspecified; M19.90 Unspecified osteoarthritis, unspecified site; F32.9 Major depressive disorder, single episode, unspecified; Z88.8 Allergy status to other drugs, medicaments and biological substances; Z88.5 Allergy status to narcotic agent; Z79.899 Other long term (current) drug therapy; Z87.891 Personal history of nicotine dependence; I48.0 Paroxysmal atrial fibrillation
CPT/HCPCS: 36415; 36569; 74022; 76937; 77001; 80048; 80053; 80202; 81001; 82962; 83605; 83735; 84484; 85025; 85027; 87040; 87077; 87086; 87186; 87641; 93005; 96361; 96372; 96374; 97163; 99284; E0710; G0237; J0610; J1170; J1642; J1650; J1940; J2001; J2060; J2543; J2550; J3370; J3475; J3480; J3490; J7030; J7040; J7060; J7070; S0164